=== PATIENT | female | born 1995 ===

== ENCOUNTER 2018-10-06 12:32 | Inpatient (IN) | payer BC ==
[2018-10-06] MEDS: Lactated Ringer's 1,000 ML IV ONE ×2 (13:10→15:20)
[2018-10-06 13:30] VITALS: BMI 36.3
[2018-10-06] MEDS ORDERED: Oxytocin 30 UNIT 30 UNITS/500 ML BAG IV ONE (13:34)
[2018-10-06] MEDS ORDERED: OXYTOCIN/0.9 % NS 20 UNIT/1,000 ML BAG IV SCH (13:45)
[2018-10-06 14:29] LABS: BASO % 0.3 % (0.0-2.0); EOS % 0.4 % (0.0-4.0); HEMOGLOBIN 13.1 g/dL (12.0-16.0); LYMPH # 2.2 K/uL (1.0-4.3); LYMPH % 23.7 % (20.0-40.0); MEAN CORPUSCULAR HEMOGLOBIN 29.2 pg (27.0-31.0); MEAN CORPUSCULAR HGB CONC 33.2 g/dL (33.0-37.0); MEAN PLATELET VOLUME 10.6 fl (7.2-11.7); MONO # 0.5 K/uL (0.0-0.8); MONO % 5.1 % (0.0-10.0); NEUT # 6.4 K/uL (1.8-7.0); NEUT % 70.5 % (50.0-75.0); NRBC % 0.2 % (0.0-0.0); RBC 4.48 Mil/uL (3.80-5.20); RED CELL DISTRIBUTION WIDTH 14.8 % (11.5-14.5); WHITE BLOOD COUNT 9.1 K/uL (4.8-10.8)
[2018-10-06] MEDS ORDERED: cefOXitin Sodium 1 GM in Sodium Chloride 0.9% 100 ML IVPB ONE (15:52)
[2018-10-06] MEDS ORDERED: cefOXitin IV 1 gm in Dextrose 1 GM/50 ML BAG IVPB ONE (16:30)
--- NOTE | 2018-10-06 17:36 | OBADHP ---
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
[2018-10-06] MEDS ORDERED: Morphine 1 mg/ml preservative-free Inj(Duramorph) ONE (18:08)
[2018-10-06] MEDS ORDERED: Phenylephrine 10 mg/ml Inj ONE (18:11)
[2018-10-06] MEDS ORDERED: ePHEDrine 50 mg/ml Inj ONE (18:12)
[2018-10-06] MEDS ORDERED: Succinylcholine 200 mg/10 ml Inj IV ONE (18:26)
[2018-10-06] MEDS ORDERED: Propofol 10 mg/ml Inj (20 ML) ONE (18:26)
[2018-10-06] MEDS ORDERED: Triamcinolone Acetonide 40 mg/mL Inj IM ONE (18:33)
--- NOTE | 2018-10-06 19:54 | OBDS ---
DELIVERY PERSONNEL Nurse Upsetter Setter Up Certified: Delivery Doctor: Otoniel Reese MD (Annotations: Data stored by [facility] on behalf of user) Scrub Nurse: Iban Walton Rocket Engine Mechanic: Ramona Nagy/Damari Crabtree RN Anesthesiologist: Otoniel Gil MD (Annotations: Data stored by [facility] on behalf of user) Extras Casting Director: mindy Resident: DR Granger.Fellow MATERNAL INFORMATION Delivery Anesthesia: Spinal Medications in Delivery: mefoxin, pitocin Estimated Blood Loss (ml): 850 Maternal Complications: None Provider Comments: see Dictated surgeons note LABOR SUMMARY EDC: 10/25/2018 00:00 No. Babies in Womb: 1 Attempted: No Labor Anesthesia: Intrathecal LABOR INFORMATION Reason for Induction: Not Applicable Onset of Labor: 10/06/2018 10:00 Oxytocin: N/A Group B Beta Strep: Negative Antibiotics # of Doses: 0 Antibiotics Time of Last Dose: n/a Steroids Given: None Reason Steroids Not Administered: Not Applicable MEMBRANES Membranes Rupture Method: Spontaneous Rupture of Membranes: 10/06/2018 18:55 Length of Rupture (hrs): 0.00 Amniotic Fluid Color: Bloody Amniotic Fluid Amount: Moderate Amniotic Fluid Odor: Normal STAGES OF LABOR Stage 3 hrs: 0 Stage 3 min: 1 Total Time in Labor hrs: 8 Total Time in Labor min: 56 VAGINAL DELIVERY Episiotomy: None Laceration Extension: N/A Laceration Type: None Laceration Repair: Not Applicable Sponge Count Correct: Yes Sharps Count Correct: Yes Count Comment: count correct x3 CSECTION DELIVERY Primary Indication: Other Other Primary Indication: Repeat Csection Secondary Indication: Other CSection Urgency: Non Elective CSection Incidence: Repeat Labor: Labor Elective: Nonelective CSection Incision: Lower Uterine Transverse Uterine Closure: Double-layer closure BABY A INFORMATION Delivery Date/Time: 10/06/2018 18:55 Method of Delivery: Born in Route : No : N/A Forceps: N/A Vacuum Extraction: N/A Shoulder Dystocia : No SHOULDER DYSTOCIA BABY A Infant Delivery Date/Time: 10/06/2018 18:55 PRESENTATION/POSITION BABY A Presentation: Cephalic Cephalic Presentation: Vertex Breech Presentation: N/A PLACENTA INFORMATION BABY A Placenta Delivery Time : 10/06/2018 18:56 Placenta Method of Delivery: Spontaneous Placenta Status: Delivered SCORES BABY A Heart Rate 1 min: >100 bpm Resp Effort 1 min: Good Cry Reflex Irritability 1 min: Cough or Sneeze or Pulls Away Muscle Tone 1 min: Active Motion Color 1 min: Body [place], Extremities Blue Resuscitation Effort 1 min: Tactile Stimulation SCORE 1 MIN: 9 Heart Rate 5 min: >100 bpm Resp Effort 5 min: Good Cry Reflex Irritability 5 min: Cough or Sneeze or Pulls Away Muscle Tone 5 min: Active Motion Color 5 min: Body [place], Extremities Blue Resuscitation Effort 5 min: N/A SCORE 5 MIN: 9 INFANT INFORMATION BABY A Gestational Age at Delivery: 37.2 Gestational Status: Term Infant Outcome : Liveborn Infant Condition : Stable Infant Sex: Female IDENTIFICATION/MEDS BABY A ID Band Number: [id number] ID Band Location: Left Leg; Left Arm WEIGHT/LENGTH BABY A Birthweight (gms): 3380 Infant Weight (lb): 7 Weight (oz): 7 CORD INFORMATION BABY A No. Cord Vessels: 3 Nuchal Cord : N/A Nuchal Cord Other: na True Knot: na Infant Cord pH Baby Arterial: na Infant Cord pH Baby Venous: na Cord Blood Taken: Yes Banking/Donate Info: na Suction: Mouth
[2018-10-06] MEDS ORDERED: Oxycodone/Acetaminophen 5/325 mg Tab PO PRN ×2 (19:57→23:59)
[2018-10-06] MEDS ORDERED: cefOXitin IV 1 gm in Dextrose 1 GM/50 ML BAG IVPB SCH (20:00)
[2018-10-06] MEDS ORDERED: DiphenhydrAMINE 50 mg/ml Inj IVP PRN (23:59)
[2018-10-07] MEDS ORDERED: DiphenhydrAMINE 50 mg/ml Inj IVP PRN (01:01)
[2018-10-07] MEDS ORDERED: Oxycodone/Acetaminophen 5/325 mg Tab PO PRN (01:01)
[2018-10-07] MEDS: cefOXitin IV 1 gm in Dextrose 1 GM/50 ML BAG IVPB SCH ×3 (02:55→18:41)
[2018-10-07 06:58] LABS: HEMOGLOBIN 12.8 g/dL (12.0-16.0); MEAN CELL VOLUME 87.1 fl (81.0-99.0); MEAN CORPUSCULAR HEMOGLOBIN 29.3 pg (27.0-31.0); MEAN CORPUSCULAR HGB CONC 33.7 g/dL (33.0-37.0); RBC 4.36 Mil/uL (3.80-5.20); RED CELL DISTRIBUTION WIDTH 14.6 % (11.5-14.5); WHITE BLOOD COUNT 10.8 K/uL (4.8-10.8)
--- NOTE | 2018-10-07 07:36 | OBPPN ---
Datetime: 10/07/2018 07:32 PP Pain Prov: Within normal limits PP Pain Prov comment: No SOB chest or leg pains PP Nausea Prov: Denies PP BM Prov: No PP Breasts Prov: Normal PP Heart Prov: Normal PP Lungs Prov: Normal PP Abdomen/Uterus Prov: Abnormal PP Lochia Prov: Normal PP Vulva/Perineum Prov: Normal PP CVA Tenderness Prov: Normal PP Extremities Prov: Normal PP C/S Incision Prov: Normal PP Progress Prov: Normal PP Comments Phys Exam Prov: breast not engorged; Abd soft not distended depressible fundus firm at umb; Dressing intact no sign of active bleeding; ext no calf tenderness PP Impression Prov: Normal progression PP Plan Prov: Continue present management PP Progress Note Prov: cbc stable, OOB to chair with help Increase diet as tolerated Pt desires flu vaccine IP PP Procedures: None Vital Signs Provider PP: Reviewed
[2018-10-07] MEDS ORDERED: Influenza Vaccine (5 YR UP)/PF 60 MCG/0.5 ML SYR IM ONE (09:00)
[2018-10-07 11:08] VITALS: RESP 18
[2018-10-07] MEDS: Oxycodone/Acetaminophen 5/325 mg Tab PO PRN ×2 (11:08→21:47)
[2018-10-07] MEDS: Simethicone 80 mg Chewtab PO PRN (21:43)
[2018-10-08] MEDS: Oxycodone/Acetaminophen 5/325 mg Tab PO PRN ×3 (04:06→13:00)
[2018-10-08] MEDS: Simethicone 80 mg Chewtab PO PRN (04:07)
--- NOTE | 2018-10-08 08:09 | OBPPN ---
Datetime: 10/08/2018 08:05 PP Pain Prov: Within normal limits PP Pain Prov comment: Denies SOB, chest or leg pains PP Nausea Prov: Denies PP Flatus Prov: Yes PP BM Prov: No PP Breasts Prov: Normal PP Lungs Prov: Normal PP Abdomen/Uterus Prov: Abnormal PP Lochia Prov: Normal PP Vulva/Perineum Prov: Normal PP CVA Tenderness Prov: Normal PP Extremities Prov: Normal PP C/S Incision Prov: Normal PP Progress Prov: Normal PP Comments Phys Exam Prov: breast NE, NT; Abd soft ND, depressible, fundus firm at umb. Dressing r emoved no active bleeding Prolene in place Ext no calf tenderness PP Impression Prov: Normal progression PP Plan Prov: Continue present management PP Progress Note Prov: OOB and ambulation Dulcolax suppt this am IP PP Procedures: None Vital Signs Provider PP: Reviewed
--- NOTE | 2018-10-08 16:03 | OBDCSUM ---
Datetime: 10/08/2018 16:01 Discharged to, Provider: Home Follow up at, Provider: Dr Reese Disch Instr Activity: Bedrest; May be up to bathroom; May be up for meals; May Shower Disch Instr Diet: Regular Discharge Instructions, Provider: Routine instructions given Discharge Diagnosis, Provider: Term Delivered Discharge Time: 10/08/2018 16:01 Follow up in weeks, Provider: 1 wk Disch Referrals: None Contraception discussed, Prov: Yes Disch Activity Restrictions: No exercising; No lifting; No driving; Minimize walking; Minimize stair -climbing; No sexual activity; Nothing in vagina - [place], tampons, douche Discharge Comment, Provider: rx for percocet given and instructions given Contraception after Delivery: Undecided
--- NOTE | 2018-10-08 16:03 | OBPPN ---
Datetime: 10/08/2018 15:57 PP Pain Prov: Within normal limits PP Pain Prov comment: No SOB chest or leg pains PP Nausea Prov: Denies PP Flatus Prov: Yes PP BM Prov: Yes PP Breasts Prov: Not Done PP Lungs Prov: Normal PP Abdomen/Uterus Prov: Abnormal PP Lochia Prov: Normal PP Vulva/Perineum Prov: Normal PP CVA Tenderness Prov: Normal PP Extremities Prov: Normal PP C/S Incision Prov: Normal PP Progress Prov: Normal PP Comments Phys Exam Prov: no change from this am exam PP Impression Prov: Normal progression PP Plan Prov: Discharge PP Progress Note Prov: pt wants to go home today, had bm and feels good Baby cleared by peds and ari l D/C home with instructions and folllow up office 1 wk Vital Signs Provider PP: Reviewed
[2018-10-09 11:54] VITALS: BP 119/74; PULSE 97; TEMP 98.2; O2SAT 99
== END 2018-10-08 18:55 | disposition home or self-care (01) | DRG 788 ==
LOC: H.EROB2 12:32 → H.L&D 14:30 → H.OB/GYN 10-07 00:20
PROVIDERS: ADMIT Specialist; ATTEND Specialist
PROC: 10D00Z1 Extraction of Products of Conception, Low, Open Approach (ICD-10-PCS; principal; 2018-10-06)
PROC: 4A1HXCZ Monitoring of Products of Conception, Cardiac Rate, External Approach (ICD-10-PCS; 2018-10-06)
DX: O34.211 Maternal care for low transverse scar from previous cesarean delivery (principal); N85.8 Other specified noninflammatory disorders of uterus; Z37.0 Single live birth; Z3A.37 37 weeks gestation of pregnancy